=== PATIENT | female | born 1990 | race Caucasian/White ===

== ENCOUNTER → 2022-07-29 13:40 | Outpatient (BNVA) | payer BC, SELFPAY | PROVIDERS: Family Provider Nurse Practitioner; PCP Family Medicine; Visit Provider Nurse Practitioner | DX: M79.671 Pain in right foot (principal) | CPT/HCPCS: 73610; 73630 ==

== ENCOUNTER 2022-10-17 08:49 | Outpatient (CLI) | payer BC, MEDICAID, SELFPAY ==
--- NOTE | 2022-10-17 09:15 | US_ITS ---
WS: [id number] RIGHT UPPER QUADRANT ULTRASOUND HISTORY: R10.9 - Unspecified abdominal pain COMPARISON: 04/09/2012 Liver: 15.5 cm in length. Normal size liver. No bile duct dilatation or mass. Portal Vein: Normal hepatopetal flow with monophasic waveform. Gallbladder: Normally distended gallbladder with numerous stones. No pericholecystic fluid or wall th ickening. CBD: 0.3 cm Pancreas: Normal size and echogenicity. Right kidney: 10.6 cm in length. Normal size and echogenicity. No hydronephrosis or mass. Aorta and IVC: Unremarkable abdominal aorta and IVC. No ascites. US/US gall bladder [id number] IMPRESSION: 1. Cholelithiasis without acute cholecystitis. Cholelithiasis is new since 201 2. 2. No bile duct dilatation.
== END 2022-10-17 08:50 | disposition home or self-care (01) ==
LOC: RAD 08:53
PROVIDERS: PCP Family Medicine; Visit Provider Nurse Practitioner Family
DX: R10.9 Unspecified abdominal pain (principal); K80.20 Calculus of gallbladder without cholecystitis without obstruction
CPT/HCPCS: 76705

== ENCOUNTER 2022-11-23 14:54 | Inpatient (IN) | payer BC, MEDICAID, SELFPAY ==
[2022-11-23 15:11] VITALS: BP 141/88; PULSE 76; RESP 18; TEMP 36.7; O2SAT 98; BMI 36.6
[2022-11-23 16:04] VITALS: BP 128/84; PULSE 80; RESP 17; TEMP 36.5; O2SAT 97
[2022-11-23 17:47] LABS: Basophils # 0.1 10^3/uL (0.0-0.1); Basophils % 0.5 %; Eosinophils # 0.2 10^3/uL (0.0-0.8); Eosinophils % 1.1 %; Hematocrit 43.7 % (37.0-47.0); Hemoglobin 13.9 g/dL (11.5-15.3); Lymphocytes % 15.4 %; Mean Corpuscular HGB Conc 31.8 g/dL (30.0-36.0); Mean Corpuscular Volume 87.9 fl (81-99); Monocytes # 0.8 10^3/uL (0.2-0.9); Neutrophils # 10.02 10^3/uL (1.8-7.7); Neutrophils % 76.8 %; Nucleated Red Blood Cells % 0 %; Platelet Count 334 10^3/cmm (130-400); Red Blood Count 4.97 10^6/uL (4.1-5.3); Red Cell Distribution Width 13.2 % (12.1-15.1); White Blood Count 13.1 10^3/uL (4.0-10.0)
[2022-11-23 18:08] LABS: Alanine Aminotransferase 180 U/L (0-33); Albumin Level 4.1 g/dL (3.5-5.2); Alkaline Phosphatase 148 U/L (35-105); Anion Gap 16.7 (5-19); Aspartate Amino Transferase 170 U/L (0-32); Blood Urea Nitrogen 13 mg/dL (6-20); Calcium 8.6 mg/dL (8.5-10.5); Carbon Dioxide 25 mmol/L (22-29); Chloride 101 mmol/L (98-107); Globulin 3.3 g/dL (1.3-4.6); Glomerular Filtration Rate 83.7 mL/min (90-130); Glucose 103 mg/dL (65-115); Lipase 32 U/L (13-60); Osmolality Calculated 288 mOsm/kg (285-295); Potassium 3.7 mmol/L (3.5-5.1); Sodium 139 mmol/L (136-145); Total Bilirubin 1.7 mg/dL (0.15-1.2); Total Protein 7.4 g/dL (6.6-8.7)
[2022-11-23 18:56] LABS: HCG Qualitative Urine. Negative (Negative)
[2022-11-23 19:01] LABS: Urine Color Dark Yellow (Yellow)
[2022-11-23 19:02] LABS: Add Urine Microscopic? YES; Bilirubin Urine 1+ (Negative); Blood Urine Neg (Negative); Glucose Urine UA Norm (Normal); Ketones Urine Negative (Negative); Leukocyte Esterase Urine Negative (Negative); Nitrate Urine Positive (Negative); Protein Urine Neg (Negative); Urine Appearance Hazy (CLEAR); Urobilinogen Urine 8 mg/dL (Negative); pH Urine 6 (5-7)
[2022-11-23 19:03] LABS: Add Urine Culture? Yes; Bacteria Urine 2+ /hpf; RBC Urine 0-4 /hpf (0-2); WBC Urine 0-4 /hpf (0-5)
[2022-11-23 19:04] LABS: Amorphous Sediment Urine 1+ /hpf; Mucus Urine 2+ /hpf
--- NOTE | 2022-11-23 19:47 | ED_ITS ---
HPI - Abdominal Pain General: Chief Complaint: Abdominal Pain Stated Complaint: abd pain Time Seen by Provider: 11/23/22 19:37 Source: patient Mode of arrival: ambulatory Limitations: no limitations History of Present Illness: 32-year-old female who states she is had right upper quadrant pain for months she is actually scheduled to have her gallbladder out next week states she started having right upper quadrant pain over the last 3 days though that has been worsening states the pain is sharp in nature rates it a 7 out of 10 she denies any fever denies any vomiting or diarrhea. Associated Symptoms: Denies chills, dysuria and fever(s) Review of Systems Const: Denies: fever(s), chills, body aches or change in appetite Eyes: Denies: blurry vision or eye discomfort ENMT: Denies: throat pain or dental pain Card: Denies: chest pain Resp: Denies: dyspnea GI: Reports: abdominal pain : Denies: dysuria Musc: Denies: neck pain or back pain Skin/Breast: Denies: rash Neuro: Denies: headache(s) Psych: Denies: depression Papi/Lymph: Denies: easy bruising All/Imm: Denies: urticaria PFSH ED PFSH: Medical History Dental infection TMJ pain dysfunction syndrome Surgical History History of D&C Social History Smoking and tobacco status: never smoked Physical Exam Const: COMMON NORMALS: no acute distress, patient oriented x3 and healthy appearing HENMT: COMMON NORMALS: normocephalic and atraumatic HEAD & SCALP: normocephalic and atraumatic Eye: COMMON NORMALS: Equal, round and reactive pupils present and EOMs intact bilaterally PUPIL: Yes Equal, round and reactive pupils present Neck/C-Spine: COMMON NORMALS: full ROM and supple Chest: COMMONS NORMALS: normal inspection of the chest and normal palpation of entire chest wall Resp: COMMON NORMALS: normal respiratory effort, No retractions, No use of accessory muscles and clear to auscultation bilaterally AUSCULTATION: clear to auscultation bilaterally Cardio: COMMON NORMALS: regular rate, regular rhythm and No murmurs present (Cardio) RATE: regular rate RHYTHM: regular rhythm GI: COMMON NORMALS: Normal to inspection, nondistended, normoactive bowel sounds present, Soft to palpation, non-tender and no masses PALPATION: Yes Soft to palpation Extremity: COMMON NORMALS: normal to inspection and full ROM Neuro: COMMON NORMALS: patient oriented x3, moves all extremities and no focal motor deficits Psych: COMMON NORMALS: mental status grossly normal, Normal thought process present and cooperative THOUGHT PROCESS: Normal thought process present Skin: COMMON NORMALS: no rashes or lesions noted and no wounds GENERAL SKIN EXAM: no rashes or lesions noted Course Vital Signs: Vital signs: Vital Signs Temperature 97.7 F 11/23/22 16:04 Pulse Rate 65 11/23/22 20:26 Respiratory Rate 16 11/23/22 20:26 Blood Pressure 133/91 11/23/22 20:26 Pulse Oximetry 96 11/23/22 20:26 Oxygen Delivery Me thod 11/23/22 20:26 MDM - Abdominal Pain Medical Decision Making Patient presents with right upper quadrant pain ultrasound shows cholecystitis we will start on antibiotics I spoke to surgeon Dr. Chadwick and will admit at this time. Lab Data 11/23/22 17:38 11/23/22 17:38 Labs/Radiology: Radiology Impressions Gallbladder Ultrasound 11/23/22 19:47 IMPRESSION: 1. Findings concerning for acute cholecystitis, as described above. 2. Borderline prominence of the common bile duct. Correlate with LFTs. Laboratory Results WBC 13.1 10^3/uL (4.0-10.0) H 11/23/22 17:38 RBC 4.97 10^6/uL (4.1-5.3) 11/23/22 17:38 Hgb 13.9 g/dL (11.5-15.3) 11/23/22 17:38 Hct 43.7 % (37.0-47.0) 11/23/22 17:38 MCV 87.9 fl (81-99) 11/23/22 17:38 MCH 28.0 pg (28.0-34.0) 11/23/22 17:38 MCHC 31.8 g/dL (30.0-36.0) 11/23/22 17:38 RDW 13.2 % (12.1-15.1) 11/23/22 17:38 Plt Count 334 10^3/cmm (130-400) 11/23/22 17:38 MPV 9.0 fL (7.4-10.4) 11/23/22 17:38 Neut % (Auto) 76.8 % 11/23/22 17:38 Lymph % (Auto) 15.4 % 11/23/22 17:38 [place] % (Auto) 6.0 % 11/23/22 17:38 Eos % (Auto) 1.1 % 11/23/22 17:38 Baso % (Auto) 0.5 % 11/23/22 17:38 Neut # (Auto) 10.02 10^3/uL (1.8-7.7) H 11/23/22 17:38 Lymph # (Auto) 2.0 10^3/uL (0.8-4.8) 11/23/22 17:38 [place] # (Auto) 0.8 10^3/uL (0.2-0.9) 11/23/22 17:38 Eos # (Auto) 0.2 10^3/uL (0.0-0.8) 11/23/22 17:38 Baso # (Auto) 0.1 10^3/uL (0.0-0.1) 11/23/22 17:38 Nucleated RBC % (auto) 0 % 11/23/22 17:38 Nucleated RBCs # 0.0 /100WBC 11/23/22 17:38 Sodium 139 mmol/L (136-145) 11/23/22 17:38 Potassium 3.7 mmol/L (3.5-5.1) 11/23/22 17:38 Chloride 101 mmol/L (98-107) 11/23/22 17:38 Carbon Dioxide 25 mmol/L (22-29) 11/23/22 17:38 Anion Gap 16.7 (5-19) 11/23/22 17:38 BUN 13 mg/dL (6-20) 11/23/22 17:38 Creatinine 0.8 mg/dL (0.5-0.9) 11/23/22 17:38 GFR Calculation 83.7 mL/min (90-130) L 11/23/22 17:38 Glucose 103 mg/dL (65-115) 11/23/22 17:38 Calculated Osmolality 288 mOsm/kg (285-295) 11/23/22 17:38 Calcium 8.6 mg/dL (8.5-10.5) 11/23/22 17:38 Total Bilirubin 1.7 mg/dL (0.15-1.2) H 11/23/22 17:38 AST 170 U/L (0-32) H 11/23/22 17:38 ALT 180 U/L (0-33) H 11/23/22 17:38 Alkaline Phosphatase 148 U/L (35-105) H 11/23/22 17:38 Total Protein 7.4 g/dL (6.6-8.7) 11/23/22 17:38 Albumin 4.1 g/dL (3.5-5.2) 11/23/22 17:38 Globulin 3.3 g/dL (1.3-4.6) 11/23/22 17:38 Lipase 32 U/L (13-60) 11/23/22 17:38 HCG, Qual Negative (Negative) 11/23/22 18:29 Urine Color Dark yellow (Yellow) 11/23/22 18:29 Urine Appearance Hazy (CLEAR) A 11/23/22 18:29 Urine pH 6 (5-7) 11/23/22 18:29 Ur Specific [place] 1.020 (1.005-1.030) 11/23/22 18:29 Urine Protein Neg (Negative) 11/23/22 18:29 Urine Glucose (UA) Norm (Normal) 11/23/22 18:29 Urine Ketones Negative (Negative) 11/23/22 18: Urine Blood Neg (Negative) 11/23/22 18:29 Urine Nitrate Positive (Negative) H 11/23/22 18:29 Urine Bilirubin 1+ (Negative) H 11/23/22 18:29 Urine Urobilinogen 8 mg/dL (Negative) H 11/23/22 18:29 Ur Leukocyte Esterase Negative (Negative) 11/23/22 18:29 Urine RBC 0-4 /hpf (0-2) H 11/23/22 18:29 Urine WBC 0-4 /hpf (0-5) H 11/23/22 18:29 Ur Squamous Epith Cells 5-10 /hpf (0-5) H 11/23/22 18:29 Amorphous Sediment 1+ /hpf 11/23/22 18:29 Urine Bacteria 2+ /hpf (NONE) H 11/23/22 18:29 Urine Mucus 2+ /hpf 11/23/22 18:29 Discharge Plan Discharge Patient Disposition: Admitted As Inpatient Clinical Impression: Cholecystitis Condition: Stable Prescriptions: No Action triamcinolone acetonide 0.5 % cream 1 applic topical BID Qty: 15 0RF methylprednisolone [Medrol (Moris)] 4 mg tablets,dose pack See Rx Instructions PO PER PKG DIR Qty: 21 0RF Rx Instructions: PO PER PKG DIR citalopram 20 mg tablet See Rx Instructions .ROUTE .COMPLEX Qty: 120 0RF Dose Instruction: TAKE 1 TABLET BY MOUTH EVERY DAY Rx Instructions: TAKE 1 TABLET BY MOUTH EVERY DAY Referrals: Juany Gonzalez FNP [Primary Care Provider] - Coding Level of Care Code ED [place] Comp[facility] for Linda Dobbins
--- NOTE | 2022-11-23 19:47 | USR_ITS ---
PROCEDURE INFORMATION: Exam: US Abdomen, Limited; Right Upper Quadrant Exam date and time: 11/23/2022 8:43 PM Age: 32 years old Clinical indication: Abdominal pain; Acute; Patient HX: Patient seen here oct 19, 2022, dx gallstones, scheduled for surgery 11/29/22. C/O ruq pain tonight. TECHNIQUE: Imaging protocol: Real time ultrasound of the abdomen with image documentation. Limited exam focused on the right upper quadrant. COMPARISON: US gall bladder [id number] 10/17/2022 9:11 AM FINDINGS: Liver: Unremarkable. Gallbladder: Cholelithiasis and prominent gallbladder wall thickening. No pericholecystic fluid. Positive sonographic Mock's sign, as per the fire inspector. This is a nonspecific finding. Biliary ducts: Borderline prominence of the common bile duct. No stones. Pancreas: Unremarkable as visualized. Right kidney: No mass. No definite stones. No hydronephrosis. US/US gall bladder [id number] IMPRESSION: 1. Findings concerning for acute cholecystitis, as described above. 2. Borderline prominence of the common bile duct. Correlate with LFTs.
[2022-11-23 19:50] VITALS: RESP 16
[2022-11-23] MEDS: morphine 4 mg/mL SDV 1 mL IVP (19:50)
[2022-11-23] MEDS: ondansetron 2 mg/ML SDV 2 mL 4 MG IVP (19:50)
[2022-11-23 20:26] VITALS: BP 133/91; PULSE 65; RESP 16; O2SAT 96
[2022-11-23] MEDS: levofloxacin-dextrose 5 % 750 MG/150 ML PREMIX 100 MG IV (21:50)
[2022-11-23 22:30] VITALS: BP 133/93; PULSE 64; RESP 16; O2SAT 97
[2022-11-23 23:01] VITALS: BP 133/83; PULSE 77; O2SAT 98
[2022-11-24] VITALS (12 sets, daily range): BP systolic 107–165; BP diastolic 66–101; PULSE 73–102; RESP 13–19; TEMP 36.1–36.9; O2SAT 94–99
[2022-11-24] MEDS: sodium chloride 0.9% 1,000 ML 100 ML IV ×2 (00:04→08:18)
[2022-11-24] MEDS: ciprofloxacin 400 MG/200 ML PREMIX 200 MG IV (08:15)
[2022-11-24] MEDS: metroNIDAZOLE IV 500 MG/100 ML PREMIX 100 MG IV ×2 (09:38→18:36)
--- NOTE | 2022-11-24 10:36 | PC.CHAP ---
Pastoral Care Encounter/Spiritual Assessment Type of Contact [] Declined cutter operator helper visit [] Patient/Family/Request visit [] Outpatient visit [] Follow-up visit [] Physician referral [] Code/Alert [x] Routine visit [] Staff referral [] Actively dying [] Patient sleeping [] Family support [] [] Out of room [] Palliative care [] [x] Receiving care in room [] Pre-surgical visit [] Trauma [] Long length of stay [] ICU visit [] Other: Relational/Emotional Strength [x] Patient feels connected with others/family/visitors/staff [] Distress [] Loneliness/isolation [] Abandonment Spirituality of Patient [x] Person of Mala [] Attends Buddhism of their Mala [x] Believes in Prayer [] Reads Bible or Baptist materials [] There are Spiritual issues to be addressed Potato Spotter Interventions [x] Prayer [x] Active listening [x] Non-anxious presence [x] Spiritual/emotional support [] Crisis/trauma care [x] Spiritual counseling [] Bereavement support [] Provided bereavement packet [] Provided Bible/devotional materials [] Provided toy/stuffed animal, coloring book to patient or family member [] Provided Communion [] Anointing/[place] [] Salvation [x] Completed spiritual assessment [] Other: Impact on Illness or Injury [] Angry [] Fearful [x] Anxious [] Often cries [] Exhaustion [x] Unable to work [] Unable to attend moravian [] Unable to walk/stand [] Unable to read [] Unable to drive [] Unable to eat/drink [] Unable to sleep [] Unable to be with family [] Patient intubated [] Other: Summary Senior dealing with blood issues has a good attitude waiting on doctors report on what needs to done well go home Time spent with patient 10 mins
--- NOTE | 2022-11-24 13:12 | P.HP_ITS ---
Providers/Chief Complaint Admitting Physician: Gualberto Chadwick DO Primary Care Provider: Juany Gonzalez APN Chief Complaint: abd pain History of Present Illness Helga Quach is a 32 year old female, who recently saw in my office for symptomatic cholelithiasis, presents yesterday to the ER with acute on chronic abdominal pain. She is scheduled for a laparoscopic cholecystectomy as an outpatient next week. She has been having epigastric and right upper quadrant abdominal pain radiating to her back along with nausea for the past month. The pain became severe yesterday, causing her to go to the emergency room. Ultrasound in the emergency room shows gallbladder wall thickening and a prominent common bile duct. Bilirubin is slightly elevated and white count is 13. She denies any fever or chills. The pain is sharp, located in the right upper quadrant and radiating to her back. Eating and palpation make the pain worse. Nothing makes pain better. Review of Systems General: Reports: 10 or more systems reviewed and unremarkable except in HPI and below Medications/Allergies Home Medications Medication Instructions Recorded Confirmed Last Taken Type No Known Home Medications 11/23/22 11/23/22 Unknown History Allergies Allergy/AdvReac Type Severity Reaction Status Date / Time Penicillins Allergy Intermediate rash Verified 11/17/22 10:02 PFSH Acute PFSH: Medical History Dental infection TMJ pain dysfunction syndrome Surgical History History of D&C Social History Smoking and tobacco status: never smoked Vitals/I&O/Wt Last Vital Signs Temp 97.7 F 11/23/22 16:04 Pulse 77 11/23/22 23:01 Resp 16 11/23/22 22:30 BP 133/83 11/23/22 23:01 Pulse Ox 98 11/23/22 23:01 O2 Del Method 11/23/22 23:02 11/23/22 11/24/22 11/24/22 22:59 06:59 14:59 Intake Total 150 / 150 1243.333 / 1243.333 Balance 150 / 150 1243.333 / 1243.333 Weight last 48 hrs Weight 220 lb Physical Exam Narrative: General : Patient is well developed , no acute distress, oriented x3 Head : Normal cephalic, a-traumatic. Ears : Pinnae and external canal are normal. Hearing is normal. Eyes : PERRLA, Sclera and injection are normal. No conjunctival discharge. Nose : Mucous membranes are without erythema. Throat : buccal mucosa is normal, gums are without significant recession or hypertrophy. Lungs : Equal chest rise bilaterally, no use of accessory muscles, trachea is midline. Cor : Rate and rhythm are normal. Abdomen : Soft, ND, mild right upper quadrant tenderness, no g/r/m Extremities : No edema, no cyanosis or clubbing, dorsalis pedis pulses are present bilaterally, non-tender to palpation of calves. Upper extremities are normal bilaterally. Back : non-tender to palpation, no CVA tenderness. Neuro : CN II - XII intact, Upper and lower extremities have equal and full strength Data 11/23/22 17:38 11/23/22 17:38 A&P Assessment and plan (1) Acute calculous cholecystitis: (2) Hyperbilirubinemia: Plan Antibiotics N.p.o. IV fluids Laparoscopic cholecystectomy with intraoperative cholangiogram The risks and benefits of the procedure, including but not limited to, bleeding, infection, scar, numbness, pain, damage to surrounding structures, damage to common bile duct requiring additional surgery, conversion to an open procedure, were explained to the patient. He is understanding of the risks and wishes to p roceed. Attestations Medical Necessity Statement*: Patient requires at least 1 night in the hospital for recovery following laparoscopic cholecystectomy Coding Level of Care Code Acute Code for [facility] Fwd Diagnoses Acute calculous cholecystitis K80.00 Hyperbilirubinemia E80.6
--- NOTE | 2022-11-24 15:50 | ANES.PREANE2 ---
Pre-Anesthetic Assessment Height/Weight: Height 1.65 m Weight 99.79 kg Temp Pulse Resp BP Pulse Ox O2 Del Method 97.0 F L 80 16 133/86 98 11/24/22 15:40 11/24/22 15:40 11/24/22 15:40 11/24/22 15:40 11/24/22 15:40 11/24/22 15:40 Operation Date: 11/24/22 13:30 Proposed Procedures p Laparoscopic Cholecystectomy(Not Applicable) - Gualberto Chadwick DO Familial anesthetic complications: none Was Beta Jga taken within 24 hours: N/A Was Clonidine taken within 24 hours: N/A Last intake: Intake Last Liquid Date 11/24/22 Last Liquid Time 09:30 Last Solid Date 11/23/22 Last Solid Time 22:00 Social No alcohol and No tobacco Exam alert, oriented x 3, clear to auscultation bilaterally and regular rate & rhythm Airway Submandibular: within normal limits Cervical ROM: within normal limits Mallampati: Class II Dentition: full GI Acute tangela Metabolic Morbid Obesity Anesthetic Plan ASA status: 2 Anesthesia: General Medications/Allergies Home Medications Medication Instructions Recorded Confirmed Last Taken Type No Known Home Medications 11/23/22 11/23/22 Unknown History Allergies Allergy/AdvReac Type Severity Reaction Status Date / Time Penicillins Allergy Intermediate rash Verified 11/17/22 10:02 Current Medications Generic Name Dose Route Start Last Admin Trade Name Freq PRN Reason Stop Dose Admin Sodium Chloride 1,000 mls @ 100 mls/hr 11/23/22 21:50 11/24/22 08:18 Sodium Chloride 0.9% IV 100 mls/hr .Q10H PRADEEP Administration Metronidazole 500 mg in 100 mls @ 100 mls/hr 11/24/22 07:00 11/24/22 10:38 Flagyl Iv IV Infused Q8H PRADEEP Infusion Protocol [facility] Anesthesia Medical History Dental infection TMJ pain dysfunction syndrome Surgical History History of D&C Social History Smoking and tobacco status: never smoked Data Anesthesia 11/23/22 17:38 11/23/22 17:38 Short CBC 11/23/22 Range/Units 17:38 WBC 13.1 H (4.0-10.0) 10^3/uL Hgb 13.9 (11.5-15.3) g/dL Hct 43.7 (37.0-47.0) % MCV 87.9 (81-99) fl Plt Count 334 (130-400) 10^3/cmm Neut % (Auto) 76.8 % Neut # (Auto) 10.02 H (1.8-7.7) 10^3/uL BMP 11/23/22 17:38 Sodium 139 Potassium 3.7 Chloride 101 Carbon Dioxide 25 BUN 13 Creatinine 0.8 Glucose 103 Calcium 8.6 Liver Function 11/23/22 Range/Units 17:38 Total Bilirubin 1.7 H (0.15-1.2) mg/dL AST 170 H (0-32) U/L ALT 180 H (0-33) U/L Alkaline Phosphatase 148 H (35-105) U/L Albumin 4.1 (3.5-5.2) g/dL Urine 11/23/22 Range/Units 18:29 Urine Color Dark yellow (Yellow) Urine Appearance Hazy A (CLEAR) Urine pH 6 (5-7) Ur Specific [place] 1.020 (1.005-1.030) Urine Protein Neg (Negative) Urine Glucose (UA) Norm (Normal) Urine Ketones Negative (Negative) Urine Nitrate Positive H (Negative) Urine Bilirubin 1+ H (Negative) Ur Leukocyte Esterase Negative (Negative) Urine RBC 0-4 H (0-2) /hpf Urine WBC 0-4 H (0-5) /hpf Cardiac Studies: No Data to Display
--- NOTE | 2022-11-24 16:00 | XR_ITS ---
WS: [id number] Exam: XR cholangio operative [id number] Date/Time of Exam: 11/24/2022 4:00 PM Reason For Exam: Laparoscopic cholecystectomy with intraoperative cholangiogr Opacification of the common bile duct shows a filling defect in the distal common bile duct on severa l sequences. A retained partially obstructing stone is not ruled out. There is some spillage of contr ast into the duodenal C-loop. The common bile duct and common hepatic duct are dilated. The main panc reatic duct is also dilated. Recommendations: MRCP or conventional ERCP should be considered for further workup. XR/XR cholangio operative [id number] IMPRESSION: 1. Filling defect in the distal common bile duct noted on several images that c ould represent a partially obstructing retained stone. 2. Dilatation of the common bile duct and common hepatic duct. There is also di latation of the main pancreatic duct.
[2022-11-24] MEDS: sodium chloride 0.9% 1,000 ML 30 ML IV (16:22)
[2022-11-24] MEDS: scopolamine 1.5 Patch 1 PATCH TRANSDERMA (16:22)
[2022-11-24] MEDS: diphenhydrAMINE 50 mg/mL SDV 1mL 12.5 MG IVP (16:23)
[2022-11-24] MEDS: ondansetron 2 mg/ML SDV 2 mL 4 MG IVP (16:23)
[2022-11-24] MEDS: lidocaine-epi 2% 20 mL INJ 10 ML INJECTION (16:55)
[2022-11-24] MEDS: iohexol 350 mg/mL 100 mL Btl XX (17:05)
--- NOTE | 2022-11-24 17:38 | P.OP_ITS ---
Operative Report Date of procedure: November 24, 2022 Pre-op diagnosis: Acute calculus cholecystitis Hyperbilirubinemia Post-op diagnosis: other (Acute calculus cholecystitis with choledocholithiasis) Procedure done: Laparoscopic cholecystectomy with intraoperative cholangiogram Implants: None Specimens removed/disposition: Gallbladder Surgeon: Dr. Gualberto Chadwick DO Anesthesia: General Estimated blood loss (mL): 5 Complications: None apparent Brief History: This very pleasant 32-year-old female who presented to the ER with acute calculus cholecystitis and hyperbilirubinemia. Laparoscopic cholecystectomy with intraoperative cholangiogram was indicated. The risk and benefits were explained and documented. Procedure: Patient was wheeled into the operative room and placed on the OR table in a supine position. Abdomen was inspected prepped and draped in usual sterile fashion. Time-out was performed and all present were in agreement. A 15 blade scalp was used to make a stab incision in the left upper quadrant and intra- abdominal insufflation was achieved using a Veress needle. After localizing the tissue incisions were made and a 5 millimeter trocar was placed into the umbilicus as well as 2 in the right upper quadrant. A 12 millimeter trocar was placed in the epigastrium. Gallbladder was grasped and elevated. The triangle of Calot was carefully dissected using blunt dissection and electrocautery until the triangle of Calot clearly identified. The cystic duct was clipped proximally and then was partially transected just distally. The cholangiocatheter was then inserted into the cystic duct and clipped into place. There was no saline leak. Contrast was injected and an x-ray was performed. It showed the cystic duct filling. Live fluoroscopy was then performed while injecting contrast. It did appear that there is at least one small stone at the ampulla of Vater. Images were sent to radiology. Contrast did go to the duodenum easily. The clip holding the cholangiocatheter in place was then removed. The catheter was removed. The cystic duct was then double clipped distally. The duct was then ligated proximally. The cystic artery was doubly clipped and ligated. The gallbladder was then removed from the liver bed using electrocautery. The gallbladder was removed from the abdomen using an Endo- Catch bag through the epigastric incision. The liver bed was inspected and no bleeding was seen. The abdomen was irrigated and suctioned. All ports removed. Skin was washed and dried. Incisions were closed with 4-0 Monocryl in a subcuticular interrupted fashion. Skin glue was applied. Patient tolerated the procedure well.
--- NOTE | 2022-11-24 18:09 | ANE.PACU2 ---
Inpatient post-anesthesia follow up: Airway intact: Yes Vital signs: Temperature 97.4 F Pulse Rate 77 Respiratory Rate 16 Blood Pressure 142/91 Pulse Oximetry 97 Oxygen Delivery Me thod Room Air Oxygen Flow Rate Fraction of Inspir ed Oxygen Hydration adequate: Yes Nausea and vomiting: No Pain level: 0 Mental status: Baseline
[2022-11-24] MEDS: morphine 4 mg/mL SDV 1 mL IVP (18:36)
[2022-11-24] MEDS: HYDROcodone-acetaminophen 7.5-325 mg Tablet 1 TAB PO (21:46)
[2022-11-25] VITALS (7 sets, daily range): BP systolic 118–137; BP diastolic 70–85; PULSE 69–85; RESP 16–18; TEMP 36.8–37.1; O2SAT 94–99
[2022-11-25] MEDS: metroNIDAZOLE IV 500 MG/100 ML PREMIX 100 MG IV ×4 (00:53→23:59)
[2022-11-25] MEDS: sodium chloride 0.9% 1,000 ML 100 ML IV ×2 (03:17→13:14)
[2022-11-25 05:05] LABS: Basophils % 0.1 %; Hematocrit 43.9 % (37.0-47.0); Lymphocytes # 0.9 10^3/uL (0.8-4.8); Lymphocytes % 5.9 %; Mean Corpuscular HGB Conc 31.9 g/dL (30.0-36.0); Mean Corpuscular Hemoglobin 28.1 pg (28.0-34.0); Mean Corpuscular Volume 88.2 fl (81-99); Mean Platelet Volume 9.1 fL (7.4-10.4); Monocytes # 0.3 10^3/uL (0.2-0.9); Monocytes % 2.2 %; Neutrophils # 13.47 10^3/uL (1.8-7.7); Neutrophils % 91.4 %; Nucleated Red Blood Cells % 0 %; Platelet Count 354 10^3/cmm (130-400); Red Blood Count 4.98 10^6/uL (4.1-5.3); White Blood Count 14.7 10^3/uL (4.0-10.0)
[2022-11-25 05:32] LABS: Alanine Aminotransferase 132 U/L (0-33); Albumin Level 3.6 g/dL (3.5-5.2); Alkaline Phosphatase 135 U/L (35-105); Anion Gap 16.4 (5-19); Aspartate Amino Transferase 38 U/L (0-32); Blood Urea Nitrogen 10 mg/dL (6-20); Calcium 8.7 mg/dL (8.5-10.5); Carbon Dioxide 17 mmol/L (22-29); Chloride 106 mmol/L (98-107); Globulin 3.5 g/dL (1.3-4.6); Glomerular Filtration Rate 116.6 mL/min (90-130); Glucose 132 mg/dL (65-115); Osmolality Calculated 281 mOsm/kg (285-295); Potassium 4.4 mmol/L (3.5-5.1); Sodium 135 mmol/L (136-145); Total Bilirubin 0.6 mg/dL (0.15-1.2); Total Protein 7.1 g/dL (6.6-8.7)
[2022-11-25] MEDS: HYDROcodone-acetaminophen 7.5-325 mg Tablet 1 TAB PO ×2 (05:38→17:28)
--- NOTE | 2022-11-25 06:16 | PC.NURSE ---
pt walked two laps around the med/surg unit this morning.
[2022-11-25 11:12] LABS: Basophils % 0.1 %; Eosinophils % 0.1 %; Hematocrit 41.8 % (37.0-47.0); Hemoglobin 13.6 g/dL (11.5-15.3); Lymphocytes # 1.4 10^3/uL (0.8-4.8); Lymphocytes % 8.8 %; Mean Corpuscular HGB Conc 32.5 g/dL (30.0-36.0); Mean Corpuscular Hemoglobin 28.8 pg (28.0-34.0); Mean Corpuscular Volume 88.6 fl (81-99); Mean Platelet Volume 8.8 fL (7.4-10.4); Monocytes # 1.2 10^3/uL (0.2-0.9); Monocytes % 7.1 %; Neutrophils # 13.63 10^3/uL (1.8-7.7); Neutrophils % 83.5 %; Nucleated Red Blood Cells % 0 %; Platelet Count 347 10^3/cmm (130-400); Red Blood Count 4.72 10^6/uL (4.1-5.3); Red Cell Distribution Width 13.1 % (12.1-15.1); White Blood Count 16.3 10^3/uL (4.0-10.0)
--- NOTE | 2022-11-25 19:23 | PM.PN ---
Subjective Subjective: Pain controlled. Vitals/I&O/Wt Last Vital Signs Temp 98.4 F 11/26/22 10:57 Pulse 87 11/26/22 10:57 Resp 17 11/26/22 10:57 BP 117/74 11/26/22 10:57 Pulse Ox 94 11/26/22 10:57 O2 Del Method 11/25/22 23:50 O2 Flow Rate 6 11/24/22 17:54 11/26/22 11/26/22 11/26/22 06:59 14:59 22:59 Intake Total 1220 / 3135 1340 / 1340 Balance 1220 / 3135 1340 / 1340 Physical Exam Narrative: Abd: S, ND, appropriately tender Data 11/26/22 03:15 11/26/22 03:15 Micro: Microbiology 11/23/22 18:29 Urine Culture - Final Urine,Clean Catch Enterobacter aerogenes A&P Assessment and plan (1) Choledocholithiasis: (2) Acute calculous cholecystitis: Plan WBC up cont ABX Repeat labs in AM Attestations Medical Necessity Statement*: Requires one more night in hospital for IV abx following lap tangela for acute calculous cholecystitis with choledocholithiasis Coding Level of Care Code Acute Code for [facility] Fwd Diagnoses Choledocholithiasis K80.50 Acute calculous cholecystitis K80.00
[2022-11-26] MEDS: sodium chloride 0.9% 1,000 ML 100 ML IV (00:23)
[2022-11-26] MEDS: HYDROcodone-acetaminophen 7.5-325 mg Tablet 1 TAB PO (02:19)
[2022-11-26 03:09] VITALS: BP 117/74; PULSE 87; RESP 17; TEMP 36.9; O2SAT 94
[2022-11-26 03:59] LABS: Basophils % 0.3 %; Eosinophils # 0.1 10^3/uL (0.0-0.8); Eosinophils % 0.6 %; Hematocrit 40.3 % (37.0-47.0); Hemoglobin 12.5 g/dL (11.5-15.3); Lymphocytes # 2.5 10^3/uL (0.8-4.8); Lymphocytes % 23.7 %; Mean Corpuscular Hemoglobin 27.9 pg (28.0-34.0); Mean Platelet Volume 9.3 fL (7.4-10.4); Monocytes # 0.9 10^3/uL (0.2-0.9); Monocytes % 8.8 %; Neutrophils # 7.04 10^3/uL (1.8-7.7); Neutrophils % 66.2 %; Nucleated Red Blood Cells % 0 %; Platelet Count 284 10^3/cmm (130-400); Red Blood Count 4.48 10^6/uL (4.1-5.3); Red Cell Distribution Width 13.5 % (12.1-15.1); White Blood Count 10.6 10^3/uL (4.0-10.0)
[2022-11-26 04:22] LABS: Alanine Aminotransferase 81 U/L (0-33); Albumin Level 3.4 g/dL (3.5-5.2); Alkaline Phosphatase 106 U/L (35-105); Anion Gap 11.9 (5-19); Aspartate Amino Transferase 18 U/L (0-32); Blood Urea Nitrogen 12 mg/dL (6-20); Calcium 8.2 mg/dL (8.5-10.5); Carbon Dioxide 22 mmol/L (22-29); Chloride 108 mmol/L (98-107); Globulin 3.1 g/dL (1.3-4.6); Glomerular Filtration Rate 83.7 mL/min (90-130); Glucose 94 mg/dL (65-115); Osmolality Calculated 286 mOsm/kg (285-295); Potassium 3.9 mmol/L (3.5-5.1); Sodium 138 mmol/L (136-145); Total Bilirubin 0.3 mg/dL (0.15-1.2); Total Protein 6.5 g/dL (6.6-8.7)
[2022-11-26] MEDS: metroNIDAZOLE IV 500 MG/100 ML PREMIX 100 MG IV (08:19)
--- NOTE | 2022-11-26 08:40 | PM.DCS ---
Discharge Providers Date of Admission: 11/24/22 17:30 Date of Discharge: November 26, 2022 Attending Provider at Admission: Gualberto Chadwick DO Attending Provider at Discharge: Gualberto Chadwick DO Primary Care Provider: Juany Gonzalez APN Diagnoses at Discharge Discharge Diagnosis (1) Acute calculous cholecystitis: Status: Acute (2) Hyperbilirubinemia: Status: Acute (3) Choledocholithiasis: Status: Acute Reason for Visit Reason for Visit: abd pain Hospital Course Hospital Course 32-year-old female presents to the ER with abdominal pain. She is found to have acute calculus cholecystitis. She underwent laparoscopic cholecystectomy with intraoperative cholangiogram. Cholangiogram identified a filling defect in the common bile duct, however there was spillage of contrast into the duodenum. She was doing well and tolerating a regular diet, with a normal bilirubin upon discharge. Physical Exam Narrative: General : Patient is well developed , no acute distress, oriented x3 Head : Normal cephalic, a-traumatic. Ears : Pinnae and external canal are normal. Hearing is normal. Eyes : PERRLA, Sclera and injection are normal. No conjunctival discharge. Nose : Mucous membranes are without erythema. Throat : buccal mucosa is normal, gums are without significant recession or hypertrophy. Lungs : Equal chest rise bilaterally, no use of accessory muscles, trachea is midline. Cor : Rate and rhythm are normal. Abdomen : Soft, ND, appropriately tender to palpation, no g/r/m, incisions intact without erythema or exudate Extremities : No edema, no cyanosis or clubbing, dorsalis pedis pulses are present bilaterally, non-tender to palpation of calves. Upper extremities are normal bilaterally. Back : non-tender to palpation, no CVA tenderness. Neuro : CN II - XII intact, Upper and lower extremities have equal and full strength Discharge Data Studies Completed and Pending Completed Studies During Hospitalization Category Date Time Status XR cholangio operative [id number] Routine Exams 11/24/22 16:00 Completed US gall bladder 35140 Stat Ultrasound 11/23/22 19:47 Completed Pending at discharge Category Date Time Status Urine Culture Stat Lab 11/23/22 18:29 Results Pathology: Surgical [PTH] Routine Pth 11/24/22 17:37 Received Radiology Impressions Gallbladder Ultrasound 11/23/22 19:47 IMPRESSION: 1. Findings concerning for acute cholecystitis, as described above. 2. Borderline prominence of the common bile duct. Correlate with LFTs. Cholangiogram,Operative 11/24/22 16:00 IMPRESSION: 1. Filling defect in the distal common bile duct noted on several images that could represent a partially obstructing retained stone. 2. Dilatation of the common bile duct and common hepatic duct. There is also dilatation of the main pancreatic duct. Laboratory Results WBC 10.6 10^3/uL (4.0-10.0) H 11/26/22 03:15 RBC 4.48 10^6/uL (4.1-5.3) 11/26/22 03:15 Hgb 12.5 g/dL (11.5-15.3) 11/26/22 03:15 Hct 40.3 % (37.0-47.0) 11/26/22 03:15 MCV 90.0 fl (81-99) 11/26/22 03:15 MCH 27.9 pg (28.0-34.0) L 11/26/22 03:15 MCHC 31.0 g/dL (30.0-36.0) 11/26/22 03:15 RDW 13.5 % (12.1-15.1) 11/26/22 03:15 Plt Count 284 10^3/cmm (130-400) 11/26/22 03:15 MPV 9.3 fL (7.4-10.4) 11/26/22 03:15 Neut % (Auto) 66.2 % 11/26/22 03:15 Lymph % (Auto) 23.7 % 11/26/22 03:15 Treasure % (Auto) 8.8 % 11/26/22 03:15 Eos % (Auto) 0.6 % 11/26/22 03:15 Baso % (Auto) 0.3 % 11/26/22 03:15 Neut # (Auto) 7.04 10^3/uL (1.8-7.7) 11/26/22 03:15 Lymph # (Auto) 2.5 10^3/uL (0.8-4.8) 11/26/22 03:15 Treasure # (Auto) 0.9 10^3/uL (0.2-0.9) 11/26/22 03:15 Eos # (Auto) 0.1 10^3/uL (0.0-0.8) 11/26/22 03:15 Baso # (Auto) 0.0 10^3/uL (0.0-0.1) 11/26/22 03:15 Nucleated RBC % (auto) 0 % 11/26/22 03:15 Nucleated RBCs # 0.0 /100WBC 11/26/22 03:15 Sodium 138 mmol/L (136-145) 11/26/22 03:15 Potassium 3.9 mmol/L (3.5-5.1) 11/26/22 03:15 Chloride 108 mmol/L (98-107) H 11/26/22 03:15 Carbon Dioxide 22 mmol/L (22-29) 11/26/22 03:15 Anion Gap 11.9 (5-19) 11/26/22 03:15 BUN 12 mg/dL (6-20) 11/26/22 03:15 Creatinine 0.8 mg/dL (0.5-0.9) 11/26/22 03:15 GFR Calculation 83.7 mL/min (90-130) L 11/26/22 03:15 Glucose 94 mg/dL (65-115) 11/26/22 03:15 Calculated Osmolality 286 mOsm/kg (285-295) 11/26/22 03:15 Calcium 8.2 mg/dL (8.5-10.5) L 11/26/22 03:15 Total Bilirubin 0.3 mg/dL (0.15-1.2) 11/26/22 03:15 AST 18 U/L (0-32) 11/26/22 03:15 ALT 81 U/L (0-33) H 11/26/22 03:15 Alkaline Phosphatase 106 U/L (35-105) H 11/26/22 03:15 Total Protein 6.5 g/dL (6.6-8.7) L 11/26/22 03:15 Albumin 3.4 g/dL (3.5-5.2) L 11/26/22 03:15 Globulin 3.1 g/dL (1.3-4.6) 11/26/22 03:15 Lipase 32 U/L (13-60) 11/23/22 17:38 HCG, Qual Negative (Negative) 11/23/22 18:29 Urine Color Dark yellow (Yellow) 11/23/22 18:29 Urine Appearance Hazy (CLEAR) A 11/23/22 18:29 Urine pH 6 (5-7) 11/23/22 18:29 Ur Specific Hamilton 1.020 (1.005-1.030) 11/23/22 18:29 Urine Protein Neg (Negative) 11/23/22 18:29 Urine Glucose (UA) Norm (Normal) 11/23/22 18:29 Urine Ketones Negative (Negative) 11/23/22 18: Urine Blood Neg (Negative) 11/23/22 18: Urine Nitrate Positive (Negative) H 11/23/22 18: Urine Bilirubin 1+ (Negative) H 11/23/22 18: Urine Urobilinogen 8 mg/dL (Negative) H 11/23/22 18: Ur Leukocyte Esterase Negative (Negative) 11/23/22 18:29 Urine RBC 0-4 /hpf (0-2) H 11/23/22 18:29 Urine WBC 0-4 /hpf (0-5) H 11/23/22 18:29 Ur Squamous Epith Cells 5-10 /hpf (0-5) H 11/23/22 18: Amorphous Sediment 1+ /hpf 11/23/22 18: Urine Bacteria 2+ /hpf (NONE) H 11/23/22 18:29 Urine Mucus 2+ /hpf 11/23/22 18:29 Procedures Performed Laparoscopic cholecystectomy with intraoperative cholangiogram Vitals Last Vital Signs Temp 98.4 F 11/26/22 03:09 Pulse 87 11/26/22 03:09 Resp 17 11/26/22 03:09 BP 117/74 11/26/22 03:09 Pulse Ox 94 11/26/22 03:09 O2 Del Method 11/25/22 23:50 O2 Flow Rate 6 11/24/22 17:54 Discharge Plan Discharge Patient Disposition: Home Condition: Stable Prescriptions: New hydrocodone-acetaminophen 5-325 mg tablet 1 tab PO Q6H PRN (Reason: pain) Qty: 20 0RF DOK 100 mg capsule 100 mg PO BID Qty: 14 0RF clindamycin HCl 150 mg capsule 150 mg PO Q6H 6 Days Qty: 24 0RF Discharge Orders: Discharge Order (Routine); Ordered 11/26/22 Ordered By: Gualberto Chadwick Referrals: Fair,Juany, [employer] [Primary Care Provider] - 4-7 days Gualberto Chadwick DO [Physician] - 2 weeks Discharge Diet: Advance as tolerated Discharge Activity: Resume usual activity Patient Instructions: Opioid Safety, Post Anesthesia Care Activity Restrictions/Additional Instructions: Do not soak incisions underwater for 2 weeks. Shower daily. Discharge Attestations Time Spent in Discharge Care*: less than 30 min Quality Metrics Clinical Quality Measures [ No reported AMI, CVA or VTE this stay] Coding Level of Care Code Acute Code for Chg Fwd Diagnoses Acute calculous cholecystitis K80.00 Hyperbilirubinemia E80.6 Choledocholithiasis K80.50
--- NOTE | 2022-11-26 10:52 | PC.NURSE ---
Dr slaughter notified that patients discharge prescriptions were sent to out pharmacy, which is not open today. Clindamycin and colace were called in by this RN to [facility] in [place]. patients prefered pharmacy was updated in computer system.
[2022-11-26 10:57] VITALS: BP 117/74; PULSE 87; RESP 17; TEMP 36.9; O2SAT 94
== END 2022-11-26 10:40 | disposition home or self-care (01) | DRG 419 ==
LOC: ER 21:46 → MEDSURG 22:00
PROVIDERS: Nurse Practitioner Family; Admitting Provider Surgery; Emergency Provider Emergency Medicine; PCP Nurse Practitioner; Visit Provider Surgery
PROC: 0FT44ZZ Resection of Gallbladder, Percutaneous Endoscopic Approach (ICD-10-PCS; CPT 47562; principal; 2022-11-24 13:30)
DX: K80.42 Calculus of bile duct with acute cholecystitis without obstruction (principal); E80.6 Other disorders of bilirubin metabolism
CPT/HCPCS: 36415; 74300; 76000; 76705; 80053; 81001; 81025; 83690; 85025; 87077; 87086; 87186; 88304; G0378; J0330; J0744; J1100; J1170; J1200; J1956; J2250; J2270; J2405; J2704; J3010; J3490; J7030; Q9967

== ENCOUNTER → 2023-11-27 12:11 | Outpatient (BNVA) | payer BC, MEDICAID, SELFPAY | PROVIDERS: PCP Nurse Practitioner; Visit Provider Nurse Practitioner Family | DX: E66.9 Obesity, unspecified (principal); Z79.899 Other long term (current) drug therapy; Z13.6 Encounter for screening for cardiovascular disorders; J30.89 Other allergic rhinitis | CPT/HCPCS: 80053; 80061; 81003; 83036; 84443; 85025 ==

== ENCOUNTER → 2024-12-16 09:18 | Outpatient (BNVA) | payer BC, MEDICAID, SELFPAY | PROVIDERS: PCP Nurse Practitioner Family; Visit Provider Nurse Practitioner Family | DX: R53.83 Other fatigue (principal) | CPT/HCPCS: 82533; 82607; 82728; 82746; 83550 ==

== ENCOUNTER → 2025-04-16 09:59 | Outpatient (BNVA) | payer BC, MEDICAID, SELFPAY | PROVIDERS: PCP Nurse Practitioner Family; Visit Provider Nurse Practitioner Family | DX: S86.912A Strain of unspecified muscle(s) and tendon(s) at lower leg level, left leg, initial encounter (principal); X58.XXXA Exposure to other specified factors, initial encounter | CPT/HCPCS: 73562; 73590; 80053; 80061; 81003; 82306; 83036; 84443; 85025 ==